=== PATIENT | female | born 1970 | race Caucasian/White ===

== ENCOUNTER 2018-12-11 21:03 | Emergency (ER) | payer MEDICARE, MEDICAID ==
--- NOTE | 2018-12-11 21:37 | ERPHSYRPT ---
- History of Present Illness Time Seen by Provider: 12/11/18 21:30 Source: patient Exam Limitations: clinical condition Patient Subjective Stated Complaint: Right foot pain. Left hip pain Triage Nursing Assessment: Patient brought back to ED via W/C and transferred to bed with assist of 1. Patient's skin pink, warm and dry. Patient A+O X 3. Patient complains of throbbing, aching pain to right foot/ankle and sharp, stabbing pain to left hip after tripping over own feet causing her to fall twist her right ankle and land on her left hip. No bruising or swelling noted to left hip no internal/external rotation noted. Right foot/ankle noted to be swollen and tender. Pulses present. Physician History: PATIENT TRIPPED AND FELL 2 DAYS AGO SUSTAINED INJURY TO HER LEFT HIP AND RIGHT ANKLE AND FOOT. HAS BEEN WALKING OF FOOT ASSOCIATED WITH PAIN. HAS EPIDURAL MORPHINE PUMP AND PERCOCET FOR PAIN CONTROL. Occurred: days ago Reason for Fall: unknown Injuries/Pain Location: lower extremity Loss of Consciousness: no loss of consciousness Quality: throbbing Severity of Pain-Max: moderate Severity of Pain-Current: moderate Modifying Factors: Improves With: movement (WEIGHT BEARING) Associated Symptoms (Fall): denies symptoms Allergies/Adverse Reactions: Sulfa (Sulfonamide Antibiotics) Allergy (Verified 12/11/18 21:12) fentanyl Adverse Reaction (Intermediate, Verified 12/11/18 21:12) Vomiting meperidine HCl [From Demerol] Adverse Reaction (Intermediate, Verified 12/11/18 21:12) Vomiting codeine Adverse Reaction (Verified 12/11/18 21:12) Vomiting Home Medications: ARIPiprazole [Abilify] 0.5 tab PO DAILY 06/28/14 [History] Albuterol Sulfate [Proair Hfa] 90 mcg NEB QID 06/28/14 [History] Cetirizine HCl [All Day Allergy] 10 mg PO DAILY 06/28/14 [History] Citalopram Hydrobromide 20 mg* [ceLEXa 20 MG] 20 mg PO DAILY 06/28/14 [ History] Diclofenac Sodium [Voltaren] 75 mg PO BID 06/28/14 [History] Doxycycline Hyclate 100 mg PO BID 06/28/14 [History] Fluconazole 100 mg [Diflucan 100 MG] 200 mg PO DAILY 06/28/14 [History] Gabapentin 300 mg PO BID 06/28/14 [History] Gabapentin 600 mg PO QHS 06/28/14 [History] Metformin HCl 500 mg [Glucophage 500 MG] 500 mg PO QHS 06/28/14 [History] Montelukast Sodium [Singulair] 10 mg PO DAILY 06/28/14 [History] Nystatin 500,000 units PO TID 06/28/14 [History] Omeprazole [Prilosec] 20 mg PO BID 06/28/14 [History] Propranolol HCl 20 mg [Inderal 20 MG] 20 mg PO BID 06/28/14 [History] Simvastatin 40 mg [Zocor 40 mg] 40 mg PO DAILY 06/28/14 [History] Sumatriptan Succinate [Imitrex] 50 mg PO UD PRN 06/28/14 [History] Temazepam 15 mg [Restoril 15 MG] 30 mg PO QHS 06/28/14 [History] Tizanidine HCl 2 mg PO DAILY 06/28/14 [History] Hx Tetanus, Diphtheria Vaccination/Date Given: No Hx Influenza Vaccination/Date Given: Yes Hx Pneumococcal Vaccination/Date Given: No Immunizations Up to Date: Yes - Review of Systems Constitutional: No Fever, No Chills Eyes: No Symptoms Ears, Nose, & Throat: No Symptoms Respiratory: No Symptoms, No Cough, No Dyspnea Cardiac: No Symptoms, No Chest Pain, No Edema, No Syncope Abdominal/Gastrointestinal: No Abdominal Pain, No Nausea, No Vomiting, No Diarrhea Genitourinary Symptoms: No Symptoms, No Dysuria Musculoskeletal: Injury, Joint Pain, Joint Swelling, No Back Pain, No Neck Pain Skin: No Rash Neurological: No Dizziness, No Focal Weakness, No Sensory Changes Psychological: No Symptoms Endocrine: No Symptoms All Other Systems: Reviewed and Negative - Past Medical History Pertinent Past Medical History: Yes Neurological History: No Pertinent History ENT History: No Pertinent History Cardiac History: No Pertinent History, Hypertension Respiratory History: Asthma, Bronchitis Endocrine Medical History: Diabetes Type II Musculoskeletal History: Arthritis, Fractures GI Medical History: No Pertinent History History: No Pertinent History Psycho-Social History: No Pertinent History Female Reproductive Disorders: No Pertinent History Other Medical History: 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, chronic pain - Past Surgical History Past Surgical History: Yes Neuro Surgical History: No Pertinent History Cardiac: No Pertinent History Respiratory: No Pertinent History Gastrointestinal: Hernia Repair Genitourinary: No Pertinent History Musculoskeletal: Other Female Surgical History: Hysterectomy Other Surgical History: BACK SURGERY, Bariatric surgery - Social History Smoking Status: Current every day smoker How long have you smoked: 16 years Exposure to second hand smoke: Yes Drug Use: none Patient Lives Alone: No - Female History Hx Last Menstrual Period: Partial Hysterectomy Hx Now: No - Nursing Vital Signs Nursing Vital Signs: Initial Vital Signs Temperature 98.0 F 12/11/18 21:13 Pulse Rate 89 12/11/18 21:13 Respiratory Rate 18 12/11/18 21:13 Blood Pressure 100/59 12/11/18 21:13 O2 Sat by Pulse Oximetry 95 12/11/18 21:13 Pain Scale Pain Intensity 8 - Physical Exam General Appearance: no apparent distress, other (APPEARS SLIGHTLY LETHARGIC, ORIENTED X 3) Neck Exam: supple, trachea midline, full range of motion Respiratory/Chest Exam: normal breath sounds Cardiovascular Exam: normal heart sounds Gastrointestinal Exam: soft, normal bowel sounds Back Exam: normal inspection Extremity Exam: joint swelling (PEDIS PULSE 2+), bony point tenderness ( TENDERNESS RIGHT ANKLE LATERAL MALLEOLUS WITH SWELLING.MODERATE SWELLING TENDERNESS PROXIMAL RIGHT FOOT 3RD TO 5TH METATARSAL), hip tenderness (LEFT GREATER TROCHANTER TENDERNESS, NO CREPITUS, ECCHYMOSIS) SpO2: 95 Ordered Tests: Active Orders 24 hr Category Date Time Status ANKLE (3 VIEWS) Stat Exams 12/11/18 21:35 Ordered FOOT (MINIMUM 3 VIEWS) Stat Exams 12/11/18 21:34 Ordered HIP UNI (2V) INCL PEL IF DONE Stat Exams 12/11/18 21:36 Ordered - Progress Progress Note: 12/11/18 22:04 APPLICATION VELCRO RIGHT ANKLE SPLINT Counseled pt/family regarding: diagnosis, need for follow-up, rad results - Departure Departure Disposition: Home Clinical Impression: LEFT HIP CONTUSION, RIGHT ANKLE/FOOT STRAIN Condition: Stable Critical Care Time: No Additional Instructions: AMBULATE USING WALKER ASSISTANCE NONWEIGNT BEARING RIGHT FOOT FOR 1 WEEK. ELEVATE FOOT ABOVE WAIST WHILE SITTING OR SUPINE POSITION. CONTINUE ALL CURRENT MEDICATIONS DIRECTED.
[2018-12-11 22:53] VITALS: BP 94/63; PULSE 88; O2SAT 94
--- NOTE | 2018-12-12 08:54 | XRAY ---
Indication: Pain and swelling following injury. Comparison: December 30, 2014. 3 views of the right ankle again demonstrates anterolateral soft tissue swelling, old lateral malleolus fracture, and small heel spurs. No new/acute findings.
--- NOTE | 2018-12-12 08:56 | XRAY ---
Indication: Pain and swelling following injury. Comparison: None 3 nonweightbearing views of the right foot demonstrates small heel spurs and tiny cuboid accessory ossicle. No other bony, articular, or soft tissue abnormalities.
--- NOTE | 2018-12-12 08:58 | XRAY ---
Indication: Left hip pain following fall 3 days ago. Comparison: None AP pelvis and 2 views of the left hip demonstrates partially visualized bilateral electronic devices with left-sided spinal leads, mild lumbosacral junction degenerative changes, and a few pelvic phleboliths. No other bony, articular, or soft tissue abnormalities.
== END 2018-12-11 23:00 | disposition home or self-care (01) ==
LOC: ED 21:03
DX: S70.02XA Contusion of left hip, initial encounter (principal); S93.401A Sprain of unspecified ligament of right ankle, initial encounter; S93.601A Unspecified sprain of right foot, initial encounter; W01.0XXA Fall on same level from slipping, tripping and stumbling without subsequent striking against object, initial encounter
CPT/HCPCS: 73502; 73610; 73630; 99283

== ENCOUNTER 2019-03-19 18:55 | Emergency (ER) | payer MEDICARE ==
--- NOTE | 2019-03-19 19:17 | ERPHSYRPT ---
- History of Present Illness Time Seen by Provider: 03/19/19 19:05 Source: patient Exam Limitations: no limitations Patient Subjective Stated Complaint: pt reports cough, congestion, nasal drainage for approx one month. pt reports she is short of breath at times. Triage Nursing Assessment: pt is aox3, pt appears in no acute distress, afebrile , pupils perrl, resps easy and non labored, lung sounds are clear throughout all morales, radial pulses strong and equal, cap refill , 3 seconds, pt skin pale warm dry, no cough noted during exam. Physician History: Short of air, cough 1 month; pneumonia 3 weeks ago - feels the same as then - like run over buy a [employer]. Runny nose, ears feel plugged. Allergies/Adverse Reactions: Sulfa (Sulfonamide Antibiotics) Allergy (Verified 03/19/19 19:06) fentanyl Adverse Reaction (Intermediate, Verified 03/19/19 19:06) Vomiting meperidine HCl [From Demerol] Adverse Reaction (Intermediate, Verified 03/19/19 19:06) Vomiting codeine Adverse Reaction (Verified 03/19/19 19:06) Vomiting Home Medications: ARIPiprazole [Abilify] 0.5 tab PO DAILY 06/28/14 [History] Albuterol Sulfate [Proair Hfa] 90 mcg NEB QID 06/28/14 [History] Cetirizine HCl [All Day Allergy] 10 mg PO DAILY 06/28/14 [History] Citalopram Hydrobromide 20 mg* [ceLEXa 20 MG] 20 mg PO DAILY 06/28/14 [ History] Diclofenac Sodium [Voltaren] 75 mg PO BID 06/28/14 [History] Doxycycline Hyclate 100 mg PO BID 06/28/14 [History] Fluconazole 100 mg [Diflucan 100 MG] 200 mg PO DAILY 06/28/14 [History] Gabapentin 300 mg PO BID 06/28/14 [History] Gabapentin 600 mg PO QHS 06/28/14 [History] Metformin HCl 500 mg [Glucophage 500 MG] 500 mg PO QHS 06/28/14 [History] Montelukast Sodium [Singulair] 10 mg PO DAILY 06/28/14 [History] Nystatin 500,000 units PO TID 06/28/14 [History] Omeprazole [Prilosec] 20 mg PO BID 06/28/14 [History] Propranolol HCl 20 mg [Inderal 20 MG] 20 mg PO BID 06/28/14 [History] Simvastatin 40 mg [Zocor 40 mg] 40 mg PO DAILY 06/28/14 [History] Sumatriptan Succinate [Imitrex] 50 mg PO UD PRN 06/28/14 [History] Temazepam 15 mg [Restoril 15 MG] 30 mg PO QHS 06/28/14 [History] Tizanidine HCl 2 mg PO DAILY 06/28/14 [History] Hx Tetanus, Diphtheria Vaccination/Date Given: No Hx Influenza Vaccination/Date Given: No Hx Pneumococcal Vaccination/Date Given: No Immunizations Up to Date: Yes - Review of Systems Constitutional: Malaise Ears, Nose, & Throat: Ear Pain (left worse - both feel like they are plugged.), Nose Congestion, Nose Discharge, Sinus Drainage Respiratory: Cough, Dyspnea (feels like short of breath) - Past Medical History Pertinent Past Medical History: Yes Neurological History: No Pertinent History ENT History: No Pertinent History Cardiac History: No Pertinent History, Hypertension Respiratory History: Asthma, Bronchitis Endocrine Medical History: Diabetes Type II Musculoskeletal History: Arthritis, Fractures GI Medical History: No Pertinent History History: No Pertinent History Psycho-Social History: No Pertinent History Female Reproductive Disorders: No Pertinent History 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 indwelling pain pump june 2018 - Social History Smoking Status: Current every day smoker How long have you smoked: 16 years Exposure to second hand smoke: Yes Drug Use: none Patient Lives Alone: No - Female History Hx Last Menstrual Period: partial hyst Hx Now: No - Nursing Vital Signs Nursing Vital Signs: Initial Vital Signs Temperature 98.1 F 03/19/19 18:56 Pulse Rate 91 H 03/19/19 18:56 Respiratory Rate 22 03/19/19 18:56 Blood Pressure 155/86 03/19/19 18:56 O2 Sat by Pulse Oximetry 96 03/19/19 18:56 Pain Scale Pain Intensity 0 - Physical Exam SpO2 Interpretation: normal SpO2: 96 - Radiology Exams Chest X-ray Interpretation: Interpreted by me, No Pneumonia, Other (round nodule R mid lungfield not seen on prior CXR and not noted on prior CT) Ordered Tests: Active Orders 24 hr Category Date Time Status CHEST 1 VIEW (PORTABLE) Stat Exams 03/19/19 19:08 Taken CBC W DIFF Stat Lab 03/19/19 19:24 Completed CMP Stat Lab 03/19/19 19:24 Completed D-DIMER QUANTITATION Stat Lab 03/19/19 19:15 Completed TROPONIN Q3H Lab 03/19/19 19:24 Completed Lab/Rad Data: Laboratory Result Diagrams 03/19/19 19:24 03/19/19 19:24 Laboratory Results 03/19/19 03/19/19 03/19/19 Range/Units 19:24 19:24 19:24 WBC 13.1 H (4.0-10.5) K/mm3 RBC 4.14 (4.1-5.4) M/mm3 Hgb 12.2 (12.0-16.0) gm/dl Hct 38.5 (35-47) % MCV 93.0 (78-100) fl MCH 29.5 (26-32) pg MCHC 31.7 L (32-36) g/dl RDW 13.5 (11.5-14.0) % Plt Count 265 (150-450) K/mm3 MPV 8.8 (6-9.5) fl Gran % 71.7 H (36.0-66.0) % Eos # (Auto) 0.22 (0-0.5) Absolute Lymphs (auto) 2.74 (1.0-4.6) Absolute Monos (auto) 0.73 (0.0-1.3) Lymphocytes % 20.9 L (24.0-44.0) % Monocytes % 5.6 (0.0-12.0) % Eosinophils % 1.7 (0.00-5.0) % Basophils % 0.1 (0.0-0.4) % Absolute Granulocytes 9.42 H (1.4-6.9) Basophils # 0.01 (0-0.4) D-Dimer (215-500) ng/mL Sodium 140 (137-145) mmol/L Potassium 4.0 (3.5-5.1) mmol/L Chloride 98 (98-107) mmol/L Carbon Dioxide 34 H (22-30) mmol/L Anion Gap 12.5 (5-15) MEQ/L BUN 10 (7-17) mg/dL Creatinine 0.61 (0.52-1.04) mg/dL Estimated GFR > 60.0 ML/MIN Glucose 98 (74-106) mg/dL Calcium 9.2 (8.4-10.2) mg/dL Total Bilirubin 0.30 (0.2-1.3) mg/dL AST 47 H (14-36) U/L ALT 27 (0-35) U/L Alkaline Phosphatase 116 (38-126) U/L Troponin I < 0.012 (0.000-0.034) ng/mL Serum Total Protein 7.5 (6.3-8.2) g/dL Albumin 4.1 (3.5-5.0) g/dL 03/19/19 Range/Units 19:15 WBC (4.0-10.5) K/mm3 RBC (4.1-5.4) M/mm3 Hgb (12.0-16.0) gm/dl Hct (35-47) % MCV (78-100) fl MCH (26-32) pg MCHC (32-36) g/dl RDW (11.5-14.0) % Plt Count (150-450) K/mm3 MPV (6-9.5) fl Gran % (36.0-66.0) % Eos # (Auto) (0-0.5) Absolute Lymphs (auto) (1.0-4.6) Absolute Monos (auto) (0.0-1.3) Lymphocytes % (24.0-44.0) % Monocytes % (0.0-12.0) % Eosinophils % (0.00-5.0) % Basophils % (0.0-0.4) % Absolute Granulocytes (1.4-6.9) Basophils # (0-0.4) D-Dimer < 215 L (215-500) ng/mL Sodium (137-145) mmol/L Potassium (3.5-5.1) mmol/L Chloride (98-107) mmol/L Carbon Dioxide (22-30) mmol/L Anion Gap (5-15) MEQ/L BUN (7-17) mg/dL Creatinine (0.52-1.04) mg/dL Estimated GFR ML/MIN Glucose (74-106) mg/dL Calcium (8.4-10.2) mg/dL Total Bilirubin (0.2-1.3) mg/dL AST (14-36) U/L ALT (0-35) U/L Alkaline Phosphatase (38-126) U/L Troponin I (0.000-0.034) ng/mL Serum Total Protein (6.3-8.2) g/dL Albumin (3.5-5.0) g/dL - Progress Progress: improved Progress Note: 03/19/19 21:03 Pt relieved to know not a new pneumonia; says the nodule on the right side has been there before. I expained that I have no prior films showing the nodule including no mention of a right side nodule on prior CT. We will make a CD of the film and she will bring to primary care in [facility]. - Departure Departure Disposition: Home Clinical Impression: Bronchitis Condition: Good Critical Care Time: No Referrals: HAL RICHARDSON [Primary Care Provider] - Additional Instructions: Take CD and discuss with primary care to be sure that nodule on the right side has been noted before; it is not on the films or CT that are showing on my radiology system.
[2019-03-19 19:27] LABS: Absolute Neutrophil Ct (ANC) 9.42 (1.4-6.9); BASOPHIL % 0.1 % (0.0-0.4); Basophil (Absolute #) 0.01 (0-0.4); Eosinophil % 1.7 % (0.00-5.0); Eosinophil (Absolute #) 0.22 (0-0.5); Hematocrit 38.5 % (35-47); Hemoglobin 12.2 gm/dl (12.0-16.0); Lymphocyte (Absolute #) 2.74 (1.0-4.6); Lymphocytes % 20.9 % (24.0-44.0); Mean Corpuscular Hemoglobin 29.5 pg (26-32); Mean Corpuscular Hgb Concent. 31.7 g/dl (32-36); Mean Platelet Volume 8.8 fl (6-9.5); Monocyte (Absolute #) 0.73 (0.0-1.3); Monocytes % 5.6 % (0.0-12.0); Neutrophil % 71.7 % (36.0-66.0); Platelet Count 265 K/mm3 (150-450); Red Blood Count 4.14 M/mm3 (4.1-5.4); Red Cell Distribution Width 13.5 % (11.5-14.0); White Blood Count 13.1 K/mm3 (4.0-10.5)
[2019-03-19 19:38] LABS: ALBUMIN 4.1 g/dL (3.5-5.0); ALKALINE PHOSPHATASE 116 U/L (38-126); ANION GAP 12.5 MEQ/L (5-15); BLOOD UREA NITROGEN 10 mg/dL (7-17); CHLORIDE 98 mmol/L (98-107); Calcium 9.2 mg/dL (8.4-10.2); Carbon Dioxide 34 mmol/L (22-30); Creatinine 1 0.61 mg/dL (0.52-1.04); Glucose 98 mg/dL (74-106); SGOT/AST 47 U/L (14-36); SGPT/ALT 27 U/L (0-35); SODIUM 140 mmol/L (137-145); Total Protein 7.5 g/dL (6.3-8.2)
[2019-03-19 20:28] VITALS: BP 117/73; PULSE 81
[2019-03-19 20:49] VITALS: O2SAT 96
--- NOTE | 2019-03-20 08:38 | XRAY ---
Indication: Fever, short of breath, cough, and wheezing. Comparison: June 28, 2014. Portable apical lordotic chest demonstrates new 2.4 cm right infrahilar nodule that warrants additional imaging. Minimal left base fibrosis/scarring. No focal infiltrate, consolidation, or large effusion. Heart is not enlarged. Bony thorax intact again with mild degenerative changes and spinal stimulator lead terminating T9 level. Impression: 1. New right infrahilar nodule. CT chest may yield further information. 2. Negative for acute pneumonic process or CHF.
== END 2019-03-19 21:14 | disposition home or self-care (01) ==
LOC: ED 18:55
DX: J40 Bronchitis, not specified as acute or chronic (principal)
CPT/HCPCS: 36415; 71045; 80053; 84484; 85025; 85379; 99284

== ENCOUNTER 2019-04-02 13:57 | Emergency (ER) | payer MEDICARE ==
[2019-04-02] MEDS ORDERED: DUONEB 0.5-3 MG/3 ml Neb IH ONE ×2 (14:09→14:10)
[2019-04-02] MEDS ORDERED: solu-MEDROL 125 MG IV ONE (14:09)
[2019-04-02] MEDS ORDERED: solu-MEDROL 125 MG ONE (14:17)
--- NOTE | 2019-04-02 14:17 | ERPHSYRPT ---
- History of Present Illness Time Seen by Provider: 04/02/19 14:00 Source: patient Exam Limitations: no limitations Physician History: Patient has had a cough and chest tightness with wheezing for the past 6 weeks. Patient was seen two week ago and then seen by her physician one week ago, who placed her on a Z-pack and oral steroids without any relief of her symptoms. Timing/Duration: week(s) (6) Activities at Onset: activity Severity of Dyspnea-Max: moderate Severity of Dyspnea-Current: moderate Possible Cause: occasional episodes Modifying Factors: Worsens With: activity, coughing Associated Symptoms: intermittent, cough, wheezing, No chest pain/discomfort, No edema, No fever, No insomnia, No loss of appetite, No lightheadedness, No weakness, No ankle swelling, No chills, No hemoptysis, No calf pain, No dizziness, No heaviness, No heart racing, No lightheadedness, No leg swelling, No muscle spasms feet, No muscle spasms hands, No painful breathing, No productive cough, No sweating, No tingling face, No tingling hands Allergies/Adverse Reactions: Sulfa (Sulfonamide Antibiotics) Allergy (Verified 04/02/19 14:17) fentanyl Adverse Reaction (Intermediate, Verified 04/02/19 14:17) Vomiting meperidine HCl [From Demerol] Adverse Reaction (Intermediate, Verified 04/02/19 14:17) Vomiting codeine Adverse Reaction (Verified 04/02/19 14:17) Vomiting Home Medications: Albuterol Sulfate [Proair Hfa] 90 mcg NEB QID 06/28/14 [History] Cetirizine HCl [All Day Allergy] 10 mg PO DAILY 06/28/14 [History] Citalopram Hydrobromide 20 mg* [ceLEXa 20 MG] 60 mg PO DAILY 06/28/14 [ History] Gabapentin 600 mg PO BID 06/28/14 [History] Montelukast Sodium [Singulair] 10 mg PO DAILY 06/28/14 [History] Propranolol HCl 20 mg [Inderal 20 MG] 80 mg PO HS 06/28/14 [History] Sumatriptan Succinate [Imitrex] 50 mg PO UD PRN 06/28/14 [History] Amitriptyline HCl 150 mg PO DAILY 04/02/19 [History] Aripiprazole [Abilify Maintena] 400 mg IM UD 04/02/19 [History] Clonazepam 1 mg PO TID PRN 04/02/19 [History] Dexlansoprazole [Dexilant] 60 mg PO DAILY 04/02/19 [History] Lubiprostone [Amitiza] 8 mcg PO BID 04/02/19 [History] Hx Tetanus, Diphtheria Vaccination/Date Given: No Hx Influenza Vaccination/Date Given: No Hx Pneumococcal Vaccination/Date Given: No - Review of Systems Constitutional: No Fever, No Chills, No Fatigue Eyes: No Discharge, No Eye Pain, No Vision Changes Ears, Nose, & Throat: No Ear Pain, No Nose Congestion, No Mouth Pain, No Mouth Swelling, No Painful Swallowing Respiratory: Cough, Dyspnea, Dyspnea on Exertion (RIVAS), Wheezing, No Stridor Cardiac: No Chest Pain, No Palpitations, No Syncope Abdominal/Gastrointestinal: No Abdominal Pain, No Nausea, No Vomiting, No Hematemesis, No Hematochezia, No Melena Genitourinary Symptoms: No Dysuria, No Frequency, No Hematuria, No Flank Pain Musculoskeletal: No Arthralgias, No Back Pain, No Neck Pain Skin: No Pruritis, No Rash Neurological: No Dizziness, No Focal Weakness, No Headache, No Paralysis, No Parasthesia, No Tremors, No Vertigo Psychological: No Anxiety Hematologic/Lymphatic: No Easy Bleeding, No Easy Bruising All Other Systems: Reviewed and Negative - Past Medical History Pertinent Past Medical History: Yes Neurological History: No Pertinent History ENT History: No Pertinent History Cardiac History: No Pertinent History, Hypertension Respiratory History: Asthma, Bronchitis Endocrine Medical History: Diabetes Type II Musculoskeletal History: Arthritis, Fractures GI Medical History: No Pertinent History History: No Pertinent History Psycho-Social History: No Pertinent History Female Reproductive Disorders: No Pertinent History 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 indwelling pain pump june 2018 - Social History Smoking Status: Current every day smoker How long have you smoked: 16 years Exposure to second hand smoke: Yes Drug Use: none Patient Lives Alone: No - Nursing Vital Signs Nursing Vital Signs: Initial Vital Signs Temperature 98.4 F 04/02/19 14:02 Pulse Rate 88 04/02/19 14:02 Respiratory Rate 16 04/02/19 14:02 Blood Pressure 120/84 04/02/19 14:02 O2 Sat by Pulse Oximetry 88 L 04/02/19 14:02 Pain Scale Pain Intensity 3 - Physical Exam General Appearance: no apparent distress Eye Exam: PERRL/EOMI, eyes nml inspection, No scleral icterus Ears, Nose, Throat Exam: hearing grossly normal, normal ENT inspection, normal pharynx, No abnormal TM (R), No abnormal TM (L), No sinus pain/drainage, No hearing decreased, No nasal congestion, No pharyngeal erythema, No tonsillar exudate Neck Exam: normal inspection, non-tender, supple, full range of motion, No Brudzinski, No limited range of motion Respiratory Exam: airway intact, diminished breath sounds, prolonged expirations , wheezing, No chest tenderness, No respiratory distress, No accessory muscle use, No crackles/rales, No rhonchi, No stridor, No pleural rub Cardiovascular/Chest Exam: normal heart sounds, regular rate/rhythm, normal peripheral pulses, No murmur, No edema Abdominal/Gastrointestinal Exam: soft, normal bowel sounds, No tenderness, No distention, No mass, No guarding, No ecchymosis, No pulsatile mass Extremity Exam: non-tender, normal range of motion, normal inspection, normal capillary refill, pelvis stable, No no calf tenderness, No no pedal edema, No pedal edema Neurologic Exam: alert, oriented x 3, cooperative, tea bag machine tender II-XII nml as tested, normal mood/affect, sensation nml, No motor deficits Skin Exam: normal color, warm, dry, No rash, No petechiae, No jaundice, No abrasion, No cyanosis SpO2 Interpretation: hypoxic, O2 applied (via nasal cannula) O2 Delivery: Room Air - Course Nursing assessment & vital signs reviewed: Yes EKG Interpreted by Me: RATE (93), Sinus Rhythm, NORMAL AXIS, NORMAL INTERVALS, prolonged QT interval, Right Bundle Branch Block, NORMAL ST-T, Other (no previous EKG for comparison) - Radiology Exams Chest X-ray Interpretation: Interpreted by me, Reviewed by me, No Pneumonia, No Pneumothorax, Nml Alignment, No Infiltrates, Nml Mediastinum, Other (right infrahilar nodule) - CT Exams Chest CT Interpretation: Other (per radiologist's interpretation: There is a 1.7 cm benign calcified right lower lobe pulmonary nodule//granuloma which appears benign. It's located in the posterior superior right lower lobe. No suspect nodule, infiltrate or consolidation is identified. There is minimal left basilar scarring or atelectasis.Unremarkable. No pneumothorax no pleural effusion. Heart unremarkable no cardiomegaly no pericardial effusion. Aorta shows no aortic aneurysm. Unremarkable. No enlarged lymph nodes. There is a severe headache he has fatty liver. There is splenic granulomata. Patient is post gastric bypass. No acute fractures and soft tissues are unremarkable.) Ordered Tests: Active Orders 24 hr Category Date Time Status Forder Operator STAT Care 04/02/19 14:11 Active EKG-ER Only STAT Care 04/02/19 14:09 Active IV Insertion STAT Care 04/02/19 14:09 Active Oxygen-ED Only Nasal Cannula 2 lpm Care 04/02/19 14:09 Active CHEST 1 VIEW (PORTABLE) Stat Exams 04/02/19 14:10 Taken CHEST WITH CONTRAST [CT] Stat Exams 04/02/19 14:35 Taken BLOOD CULTURE Stat Lab 04/02/19 15:00 Received CBC W DIFF Stat Lab 04/02/19 14:09 Completed CMP Stat Lab 04/02/19 14:09 Completed Lactic Acid Stat Lab 04/02/19 14:29 Completed MAGNESIUM Stat Lab 04/02/19 14:09 Completed NT PRO BNP Stat Lab 04/02/19 14:09 Completed PROTIME WITH INR Stat Lab 04/02/19 14:09 Completed PTT Stat Lab 04/02/19 14:09 Completed TROPONIN Q3H Lab 04/02/19 14:15 Completed TROPONIN Q3H Lab 04/02/19 17:15 Ordered TROPONIN Q3H Lab 04/02/19 20:15 Ordered TROPONIN Q3H Lab 04/02/19 23:15 Ordered TROPONIN Q3H Lab 04/03/19 02:15 Ordered UA W/RFX UR CULTURE Stat Lab 04/02/19 15:34 Completed VENOUS BLOOD GAS Stat Lab 04/02/19 14:29 Completed Peak Expiratory Flow Rate ONCE RT 04/02/19 14:40 Active Respiratory Therapy Assessment DAILY RT 04/02/19 14:41 Active Medication Summary Discontinued Medications Generic Name Dose Route Start Last Admin Trade Name Sera PRN Reason Stop Dose Admin Albuterol/Ipratropium 9 ml 04/02/19 14:09 04/02/19 14:15 Duoneb 0.5-3 Mg/3 Ml Neb IH 04/02/19 14:10 9 ml STAT ONE Administration Albuterol/Ipratropium Confirm 04/02/19 14:10 Duoneb 0.5-3 Mg/3 Ml Neb Administered 04/02/19 14:11 Dose 9 ml IH .STK-MED ONE Sodium Chloride 1,000 mls @ 999 mls/hr 04/02/19 14:37 04/02/19 15:36 Sodium Chloride 0.9% 1000 Ml IV 04/02/19 15:37 999 mls/hr .Q1H1M STA Administration Sodium Chloride Confirm 04/02/19 14:58 Sodium Chloride 0.9% 1000 Ml Administered 04/02/19 14:59 Dose 1,000 mls @ ud .ROUTE .STK-MED ONE Methylprednisolone Sodium Succinate 125 mg 04/02/19 14:09 04/02/19 14:21 Solu-Medrol 125 Mg IV 04/02/19 14:10 125 mg STAT ONE Administration Methylprednisolone Sodium Succinate Confirm 04/02/19 14:17 Solu-Medrol 125 Mg Administered 04/02/19 14:18 Dose 125 mg .ROUTE .STK-MED ONE Lab/Rad Data: Laboratory Result Diagrams 04/02/19 14:09 04/02/19 14:09 Laboratory Results 04/02/19 04/02/19 04/02/19 Range/Units 15:34 14:29 14:15 WBC (4.0-10.5) K/mm3 RBC (4.1-5.4) M/mm3 Hgb (12.0-16.0) gm/dl Hct (35-47) % MCV (78-100) fl MCH (26-32) pg MCHC (32-36) g/dl RDW (11.5-14.0) % Plt Count (150-450) K/mm3 MPV (6-9.5) fl Gran % (36.0-66.0) % Eos # (Auto) (0-0.5) Absolute Lymphs (auto) (1.0-4.6) Absolute Monos (auto) (0.0-1.3) Lymphocytes % (24.0-44.0) % Monocytes % (0.0-12.0) % Eosinophils % (0.00-5.0) % Basophils % (0.0-0.4) % Absolute Granulocytes (1.4-6.9) Basophils # (0-0.4) PT (9.95-12.35) SECONDS INR (0.8-3.0) APTT (25.3-37.0) SECONDS pO2/FiO2 Ratio 28.0 % VBG pH 7.37 (7.32-7.42) VBG pCO2 at Pat Temp 60 H (42-55) mm/Hg VBG pO2 at Pat Temp 41 H (25-40) mm/Hg VBG HCO3 34.7 H* (22-28) meq/L VBG O2 Sat (Lucinda) 78.2 L (95-100) VBG Base Excess 7.4 H (-2.0-2.0) VBG Hemoglobin 13.2 VBG Carboxyhemoglobin 3.4 (0.0-6.9) % T HGB POC Potassium 3.8 (3.5-5.1) Sodium (137-145) mmol/L Potassium (3.5-5.1) mmol/L Chloride (98-107) mmol/L Carbon Dioxide (22-30) mmol/L Anion Gap (5-15) MEQ/L BUN (7-17) mg/dL Creatinine (0.52-1.04) mg/dL Estimated GFR ML/MIN Glucose (74-106) mg/dL Lactic Acid 0.7 (0.4-2.0) Calcium (8.4-10.2) mg/dL Magnesium (1.6-2.3) mg/dL Total Bilirubin (0.2-1.3) mg/dL AST (14-36) U/L ALT (0-35) U/L Alkaline Phosphatase (38-126) U/L Troponin I < 0.012 (0.000-0.034) ng/mL NT-Pro-B Natriuret Pep (0-900) pg/mL Serum Total Protein (6.3-8.2) g/dL Albumin (3.5-5.0) g/dL Urine Color STRAW (YELLOW) Urine Appearance CLEAR (CLEAR) Urine pH 7.0 (5-6) Ur Specific [place] 1.008 (1.005-1.025) Urine Protein NEGATIVE (Negative) Urine Ketones NEGATIVE (NEGATIVE) Urine Blood NEGATIVE (0-5) Daniel/ul Urine Nitrite NEGATIVE (NEGATIVE) Urine Bilirubin NEGATIVE (NEGATIVE) Urine Urobilinogen NEGATIVE (0-1) mg/dL Ur Leukocyte Esterase NEGATIVE (NEGATIVE) Urine WBC (Auto) NONE (0-5) /HPF Urine RBC (Auto) NONE (0-2) /HPF U Epithel Cells (Auto) NONE (FEW) /HPF Urine Bacteria (Auto) NONE (NEGATIVE) /HPF Urine Culture Reflexed NO (NO) Urine Glucose NEGATIVE (NEGATIVE) mg/dL 04/02/19 04/02/19 04/02/19 Range/Units 14:09 14:09 14:09 WBC 11.4 H (4.0-10.5) K/mm3 RBC 4.30 (4.1-5.4) M/mm3 Hgb 12.9 (12.0-16.0) gm/dl Hct 40.6 (35-47) % MCV 94.4 (78-100) fl MCH 30.0 (26-32) pg MCHC 31.8 L (32-36) g/dl RDW 14.1 H (11.5-14.0) % Plt Count 298 (150-450) K/mm3 MPV 8.8 (6-9.5) fl Gran % 68.8 H (36.0-66.0) % Eos # (Auto) 0.26 (0-0.5) Absolute Lymphs (auto) 2.45 (1.0-4.6) Absolute Monos (auto) 0.81 (0.0-1.3) Lymphocytes % 21.5 L (24.0-44.0) % Monocytes % 7.1 (0.0-12.0) % Eosinophils % 2.3 (0.00-5.0) % Basophils % 0.3 (0.0-0.4) % Absolute Granulocytes 7.83 H (1.4-6.9) Basophils # 0.03 (0-0.4) PT 11.2 (9.95-12.35) SECONDS INR 0.99 (0.8-3.0) APTT 28.6 (25.3-37.0) SECONDS pO2/FiO2 Ratio % VBG pH (7.32-7.42) VBG pCO2 at Pat Temp (42-55) mm/Hg VBG pO2 at Pat Temp (25-40) mm/Hg VBG HCO3 (22-28) meq/L VBG O2 Sat (Lucinda) (95-100) VBG Base Excess (-2.0-2.0) VBG Hemoglobin VBG Carboxyhemoglobin (0.0-6.9) % T HGB POC Potassium (3.5-5.1) Sodium 143 (137-145) mmol/L Potassium 4.2 (3.5-5.1) mmol/L Chloride 100 (98-107) mmol/L Carbon Dioxide 34 H (22-30) mmol/L Anion Gap 13.8 (5-15) MEQ/L BUN 11 (7-17) mg/dL Creatinine 0.76 (0.52-1.04) mg/dL Estimated GFR > 60.0 ML/MIN Glucose 77 (74-106) mg/dL Lactic Acid (0.4-2.0) Calcium 9.2 (8.4-10.2) mg/dL Magnesium 1.8 (1.6-2.3) mg/dL Total Bilirubin 0.30 (0.2-1.3) mg/dL AST 34 (14-36) U/L ALT 28 (0-35) U/L Alkaline Phosphatase 125 (38-126) U/L Troponin I (0.000-0.034) ng/mL NT-Pro-B Natriuret Pep 112 (0-900) pg/mL Serum Total Protein 6.9 (6.3-8.2) g/dL Albumin 3.8 (3.5-5.0) g/dL Urine Color (YELLOW) Urine Appearance (CLEAR) Urine pH (5-6) Ur Specific [place] (1.005-1.025) Urine Protein (Negative) Urine Ketones (NEGATIVE) Urine Blood (0-5) Daniel/ul Urine Nitrite (NEGATIVE) Urine Bilirubin (NEGATIVE) Urine Urobilinogen (0-1) mg/dL Ur Leukocyte Esterase (NEGATIVE) Urine WBC (Auto) (0-5) /HPF Urine RBC (Auto) (0-2) /HPF U Epithel Cells (Auto) (FEW) /HPF Urine Bacteria (Auto) (NEGATIVE) /HPF Urine Culture Reflexed (NO) Urine Glucose (NEGATIVE) mg/dL - Progress Progress: improved, re-examined Air Movement: good Progress Note: 04/02/19 16:48 Improved airflow throughout, no tachypnea, no hypoxia; patient feels subjectively better Blood Culture(s) Obtained: Yes Antibiotics given: No Counseled pt/family regarding: lab results, diagnosis, need for follow-up, rad results, smoking cessation - Departure Departure Disposition: Home, Extended Care Facility Clinical Impression: Smoker Dyspnea Qualifiers: Dyspnea type: shortness of breath Qualified Code(s): R06.02 - Shortness of breath; R06.00 - Dyspnea, unspecified; R06.01 - Orthopnea Acute asthma exacerbation Qualifiers: Asthma severity: moderate Asthma persistence: persistent Qualified Code(s): J45.41 - Moderate persistent asthma with (acute) exacerbation Condition: Good Critical Care Time: No Referrals: HAL RICHARDSON [Primary Care Provider] - 04/04/19 Instructions: Quit Smoking, Asthma, Adult (DC), Shortness of Breath (Dyspnea) ( DC) Additional Instructions: Return immediately to the emergency department if any worse at any time including any worsening shortness of breath, new fevers, new cough, new sputum production. Stop smoking. Follow-up with your doctor in the next two days. Prescriptions: Albuterol/Ipratropium 3ml Neb* [DUONEB 0.5-3 MG/3 ml Neb] 3 ml NEBULIZE Q4H PRN PRN #1 box PRN Reason: Wheezing/Chest Congestion Fluticasone/Salmeterol Disc [Advair 250-50 Diskus 14 Dose] 1 each IH BID # 1 disk.w.dev Prednisone 20 mg [Deltasone 20 mg] 60 mg PO DAILY #9 tablet
[2019-04-02 14:33] LABS: Lactic Acid 0.7 (0.4-2.0); VBG BASE EXCESS 7.4 (-2.0-2.0); VBG CARBOXYHEMOGLOBIN 3.4 % T HGB (0.0-6.9); VBG HCO3- 34.7 meq/L (22-28); VBG HEMOGLOBIN 13.2; VBG O2 SATURATION 78.2 (95-100); VBG POTASSIUM 3.8 (3.5-5.1); VBG pH 7.37 (7.32-7.42)
[2019-04-02] MEDS ORDERED: Sodium Chloride 0.9% 1000 ML 1,000 ML IV STA (14:37)
[2019-04-02 14:48] LABS: Absolute Neutrophil Ct (ANC) 7.83 (1.4-6.9); BASOPHIL % 0.3 % (0.0-0.4); Basophil (Absolute #) 0.03 (0-0.4); Eosinophil % 2.3 % (0.00-5.0); Eosinophil (Absolute #) 0.26 (0-0.5); Hematocrit 40.6 % (35-47); Hemoglobin 12.9 gm/dl (12.0-16.0); Lymphocyte (Absolute #) 2.45 (1.0-4.6); Lymphocytes % 21.5 % (24.0-44.0); Mean Cell Volume 94.4 fl (78-100); Mean Corpuscular Hgb Concent. 31.8 g/dl (32-36); Mean Platelet Volume 8.8 fl (6-9.5); Monocyte (Absolute #) 0.81 (0.0-1.3); Monocytes % 7.1 % (0.0-12.0); Neutrophil % 68.8 % (36.0-66.0); Platelet Count 298 K/mm3 (150-450); Red Cell Distribution Width 14.1 % (11.5-14.0); White Blood Count 11.4 K/mm3 (4.0-10.5)
[2019-04-02 14:53] LABS: INR 0.99 (0.8-3.0); PROTIME 11.2 SECONDS (9.95-12.35)
[2019-04-02 14:56] LABS: PTT 28.6 SECONDS (25.3-37.0)
[2019-04-02] MEDS ORDERED: Sodium Chloride 0.9% 1000 ML 1,000 ML ONE (14:58)
[2019-04-02 15:08] LABS: ALBUMIN 3.8 g/dL (3.5-5.0); ALKALINE PHOSPHATASE 125 U/L (38-126); ANION GAP 13.8 MEQ/L (5-15); BLOOD UREA NITROGEN 11 mg/dL (7-17); CHLORIDE 100 mmol/L (98-107); Calcium 9.2 mg/dL (8.4-10.2); Carbon Dioxide 34 mmol/L (22-30); Creatinine 1 0.76 mg/dL (0.52-1.04); Glucose 77 mg/dL (74-106); MAGNESIUM 1.8 mg/dL (1.6-2.3); NT PRO BNP 112 pg/mL (0-900); Potassium 4.2 mmol/L (3.5-5.1); SGOT/AST 34 U/L (14-36); SGPT/ALT 28 U/L (0-35); SODIUM 143 mmol/L (137-145); Total Protein 6.9 g/dL (6.3-8.2)
[2019-04-02 15:48] LABS: Appearance CLEAR (CLEAR); Bilirubin NEGATIVE (NEGATIVE); Blood NEGATIVE Ery/ul (0-5); Glucose NEGATIVE (NEGATIVE); Ketones NEGATIVE (NEGATIVE); Leukocyte Esterase NEGATIVE (NEGATIVE); Nitrite NEGATIVE (NEGATIVE); Protein,Urine Dip NEGATIVE (Negative); Specific Gravity 1.008 (1.005-1.025); Urobilinogen NEGATIVE mg/dL (0-1)
[2019-04-02 16:59] VITALS: BP 125/64; PULSE 72; O2SAT 95
--- NOTE | 2019-04-02 21:22 | XRAY ---
Indication: Cough and wheezing. Comparison: March 19, 2019. Portable chest again demonstrates CT proven right lower lobe calcified granuloma, bibasilar fibrosis/scarring, and epidural stimulator leads. Remaining lungs clear. Heart is not enlarged. No new/acute findings.
--- NOTE | 2019-04-02 21:23 | XRAY ---
Indication: Short of breath/dyspnea. Lung nodule. Multiple contiguous axial images obtained through the chest using 80 cc Isovue-370 contrast. Comparison: February 06, 2013. Previous left paraesophageal noncalcified soft tissue mass approximately T4 level appears smaller today measuring 3.7 x 2.2 cm. This previously measured 4.0 x 3.3 cm. 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 Heart is not enlarged. Aorta is normal in course and caliber. A few small mediastinal lymph nodes, none pathologically enlarged. New small hiatal hernia. Examination of the lung parenchyma demonstrates new posterior right lower lobe 2.2 cm subpleural calcified granuloma. Minimal scattered fibrosis/scarring bilaterally. No infiltrate or effusion. Bony thorax intact with mild degenerative changes throughout the spine. Again epidural stimulator leads terminates T8 level. Limited upper abdomen now demonstrates diffuse fatty liver and gastric bypass surgery. Impression: 1. 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 2. New right lower lobe calcified granuloma, small hiatal hernia, fatty liver, and gastric bypass surgery. 3. Remaining CT chest with contrast exam is negative. Comment: Preliminary interpretation was made by [facility] does not report incidental paraesophageal mass. CTDI 17.76
== END 2019-04-02 17:03 | disposition home or self-care (01) ==
LOC: ED 13:57
DX: R06.02 Shortness of breath (principal); J45.41 Moderate persistent asthma with (acute) exacerbation; Z72.0 Tobacco use
CPT/HCPCS: 36000; 36415; 71045; 71260; 80053; 81001; 82805; 83605; 83735; 83880; 84484; 85025; 85610; 85730; 87040; 93005; 93041; 94150; 94640; 96360; 96374; 99284; J2930; A9270-GY